=== PATIENT | female | born 1960 | race Caucasian/White ===

== ENCOUNTER 2025-02-02 14:06 | Outpatient (CLI) | payer OTHER, SELFPAY ==
--- NOTE | ~2025-02-02 | US_ITS ---
EXAMINATION: US thyroid DATE: 02/02/2025 14:19 INDICATION: Nontoxic goiter TECHNIQUE: Multiple ultrasound images of the thyroid were obtained. COMPARISON: None. FINDINGS: The right thyroid lobe measures 4.7 x 2.0 x 1.9 cm. The left thyroid lobe measures 2.4 x 1.4 x 1.9 c m. There are couple solid wider than tall hypoechoic nodules with smooth to ill-defined margins and without echogenic foci (TI-RADS 4, moderately suspicious , FNA if >=1.5 cm, annual followup is >=1 cm ) measuring 1.0 cm in the right thyroid lobe and 1.5 cm at the left thyroid lobe. There is normal ech otexture, echogenicity and vascular flow throughout the thyroid gland. IMPRESSION: 1. A couple bilateral thyroid 4 thyroid nodules. Recommend ultrasound-guided biopsy of a larger 1.5 c m nodule at the inferior left thyroid. Reviewed, dictated and finalized at location B. IMPRESSION: 1. A couple bilateral thyroid 4 thyroid nodules. Recommend ultrasound-guided bi opsy of a larger 1.5 cm nodule at the inferior left thyroid.
== END 2025-02-02 14:07 | disposition home or self-care (01) ==
LOC: GOSHIMG 14:06
PROVIDERS: PCP Clinical Nurse Specialist; Visit Provider Clinical Nurse Specialist
DX: E04.2 Nontoxic multinodular goiter (principal)
CPT/HCPCS: 76536